=== PATIENT | female | born 1985 | race Caucasian/White ===

== ENCOUNTER 2017-04-17 05:55 | Inpatient (IN) | payer OTHER ==
[2017-04-16 10:28] LABS: BASOPHILS # (AUTO) 0.3 K/uL (0.00-0.22); BASOPHILS % (AUTO) 2.2 % (0.0-2.0); EOSINOPHILS # (AUTO) 0.2 K/uL (0-0.4); EOSINOPHILS % (AUTO) 1.3 % (0.0-4.0); HEMOGLOBIN 13.1 g/dL (12.0-16.0); LYMPHOCYTES # (AUTO) 2.2 K/uL (2.5-16.5); LYMPHOCYTES % (AUTO) 17.6 % (20.5-51.1); MEAN CORPUSCULAR HEMOGLOBIN 26 pg (27-31); MEAN CORPUSCULAR HGB CONC 32 g/dL (33-37); MEAN CORPUSCULAR VOLUME 80 fL (80-94); MONOCYTES # (AUTO) 0.3 K/uL (0.8-1.0); MONOCYTES % (AUTO) 2.4 % (1.7-9.3); NEUTROPHILS # (AUTO) 9.4 K/uL (1.8-7.7); NEUTROPHILS % (AUTO) 76.5 % (42.2-75.2); PLATELET COUNT (AUTO) 551 K/uL (140-450); RED BLOOD CELL COUNT(AUTO) 5.12 MIL/uL (4.20-5.40); WHITE BLOOD COUNT (AUTO) 12.4 K/uL (4.8-10.8)
[2017-04-16 10:49] LABS: ALBUMIN 3.3 g/dL (3.4-5.0); ANION GAP 13.2 (8-16); CALCIUM 8.2 mg/dL (8.5-10.1); CARBON DIOXIDE 26.8 mmol/L (21-32); CREATININE 0.7 mg/dL (0.6-1.3); TOTAL BILIRUBIN 0.3 mg/dL (0.0-1.0); TOTAL PROTEIN, SERUM 8.3 g/dL (6.4-8.2)
[~2017-04-17] VITALS: Ht 170.2 cm; Wt 134.3 kg
[2017-04-17] MEDS ORDERED: AMOX500C25 PO (07:12)
[2017-04-17] MEDS ORDERED: BUPIVACAINE-MPF/EPI 0.5% 30 ML VIAL INJ ONE (07:13)
[2017-04-17] MEDS ORDERED: MIDAZOLAM 2 MG/2 ML VIAL ONE (09:19)
[2017-04-17] MEDS ORDERED: fentaNYL 0.05 MG/ML VIAL ONE (09:19)
[2017-04-17] MEDS ORDERED: DEXAMETHASONE 4 MG/ML VIAL ONE (09:20)
[2017-04-17] MEDS ORDERED: ONDANSETRON 4 MG/2 ML VIAL ONE (09:20)
[2017-04-17] MEDS ORDERED: PROPOFOL 200 MG/20 ML VIAL IV ONE (09:20)
[2017-04-17] MEDS ORDERED: SUCCINYLCHOLINE CHLORIDE 200 MG/10 ML VIAL IVP ONE (09:20)
[2017-04-17] MEDS ORDERED: SEVOFLURANE 250 ML BTL INH ONE (09:20)
[2017-04-17] MEDS ORDERED: MEPERIDINE 50 MG/ML SYR ONE (09:20)
[2017-04-17] MEDS ORDERED: IBUPROFEN 800 MG TAB PO PRN (09:40)
[2017-04-17] MEDS ORDERED: ONDANSETRON 4 MG/2 ML VIAL IVP PRN ×2 (09:40→10:00)
[2017-04-17] MEDS ORDERED: MEPERIDINE 25 MG/ML SYR IVP PRN (10:00)
[2017-04-17] MEDS ORDERED: BLOOD GLUCOSE MONITORING 1 DEV DEV FS SCH (10:00)
[2017-04-17] MEDS ORDERED: diphenhydrAMINE 50 MG/ML VIAL IVP PRN (10:00)
[2017-04-17] MEDS ORDERED: HYDROmorphone 1 MG/ML AMP IVP PRN (10:00)
[2017-04-17] MEDS: HYDROmorphone PFS 2 MG/ML SYR ONE ×4 (10:45→11:15)
[2017-04-17] MEDS ORDERED: KETOROLAC 60 MG/2 ML VIAL IM ONE (11:26)
--- NOTE | 2017-04-17 14:25 | NUR ---
REPORT RECEIVED FROM PACU NURSE, PT AAOX4 RESTING QUIETLY IN NAD, RESP EVEN UNLABORED, SPEAKS CLERLY WITHOUT PROBLEM, MOVES ALL EXT, SKIN WARM DRY COLOR WNL, BULKY DRESSING NOTED TO LOWER ABD, CLEAN DRY INTACT, PT C/O PAIN 03/16, WILL MEDICATE PER ORDER, PLAN OF CARE DISCUSSED, ALL QUIESTIONS ASKED AND ANSWERED, PT ORIENTED TO ROOM AND FLOOR, CALL LI WITHIN REACH, AT BEDSIDE, WILL CONTINUE TO MONITOR.
[2017-04-17] MEDS: MORPHINE SULFATE 4 MG/ML SYR IM/IVP PRN ×2 (14:29→19:14)
[2017-04-17 14:30] VITALS: BP 105/68
[2017-04-17] MEDS: NACL 0.9% 1,000 ML IV SCH ×3 (14:32→23:55)
[2017-04-17 16:00] VITALS: BP 109/65
[2017-04-17] MEDS: ACETAMINOPHEN/CODEINE 300/30MG 1 TAB PO PRN (17:16)
--- NOTE | 2017-04-17 17:16 | NUR ---
PT C/O MORE PAIN, MEDICATED WITH T#3 AT THIS TIME.
--- NOTE | 2017-04-17 18:16 | NUR ---
PT SITTING UP IN BED TALKING WITH FAMILY, LAUGHING SMILING IN NAD, BERNARDA CLEAR LIQ DIET WELL WITHOUT PROBLEM.
--- NOTE | 2017-04-17 19:30 | NUR ---
REPORT GIVEN TO ELECTRICAL POWER ENGINEER NURSE, PT IN STABLE CONDITION.
[2017-04-17 20:00] VITALS: BP 81/28
--- NOTE | 2017-04-17 20:05 | NUR ---
SEEN PT AWAKE, ALERT AND ORIENTED SWEATING. PT STATES SHE FEELS LIKE SHE'S HAVING ANXIETY ATTACK BUT DENIES ANY PAIN. INITIAL ASSESSMENT DONE. ABDOMINAL DRESSING CHECKED-CLEAN, DRY AND INTACT. PT FEELS PAIN WHEN AREA IS TOUCHED. VITAL SIGNS CHECKED. BP 81/28. PT'S HOB LOWERED. PT'S O2 99% ON ROOM AIR BUT STILL PLACED ON 2L VIA NC. PT SAID IT FEELS MUCH BETTER W/ O2 ON. PT STATES "KEEP IT ON FOR NOW." ICED TOWEL PLACED ON PT'S FOREHEAD. PT STATES " IT FEELS BETTER." INSTRUCTED THAT SHE NEEDS TO MOVE AND BE OUT OF BED. PT SAID " IT HURTS TOO MUCH WHEN I MOVE." ASKED PT WHEN DID SHE LAST URINATE. SHE SAID "9AM BEFORE I HAD SURGERY." PT CAN'T REMEMBER IF THEY PUT CATHETER ON HER DURING SURGERY. INFORMED PT THAT HER BP NEEDS TO BE CHECK BEFORE PAIN MEDICATION. CALL LIGHT W/IN REACH. FAMILY AT BEDSIDE. WILL CONTINUE TO MONITOR.
[2017-04-17 20:30] VITALS: BP 97/38
--- NOTE | 2017-04-17 20:30 | NUR ---
BP RECHECKED ON SAME ARM (LEFT) 97/38. PT SAID SHE FEELS MUCH BETTER NOW AND WANTS TO KEEP HER OXYGEN ON. CALL LIGHT W/IN REACH. INSTRUCTED PT TO CALL ANYTIME SHE FEELS THE SAME WAY AGAIN. PT VERBALIZED UNDERSTANDING.
--- NOTE | 2017-04-17 21:35 | NUR ---
PT STATED SHE WERE ABLE TO SLEEP FOR AN HOUR AND THEN WOKE UP SWEATING AND FELT LIKE PASSING OUT.
[2017-04-17 21:40] VITALS: BP 100/54
--- NOTE | 2017-04-17 21:40 | NUR ---
PT CALLED AND WANTS TO URINATE BUT SCARED TO MOVE DUE TO PAIN. PT SAYING SHE FEELS LIKE PASSING OUT EARLIER AND THAT SHE'S SWEATING AGAIN. PT APPEARS PALE. COLD TOWEL IN PLACED ON FOREHEAD. BP CHECKED:100/54. WILL CALL DR VICKIE ZIEGLER.
--- NOTE | 2017-04-17 21:45 | NUR ---
SPOKE TO DR Wero ZIEGLER REGARDING PT NOT ABLE TO URINATE SINCE SURGERY AND THAT SHE ALMOST PASSED OUT EARLIER W/ LOW BP OF 81/28. HE SAID OK TO PUT PADILLA IN AND MONITOR BP. Addendum: 04/17/17 at 2232 by Elizabeth Vanegas RN INFORMED DR Wero ZIEGLER THAT HER BP NOW IS 100/54.
--- NOTE | 2017-04-17 22:00 | NUR ---
EXPLAINED TO PT THE PROCEDURE IN PADILLA CATHETER INSERTION. PT VERBALIZED UNDERSTANDING. STERILE TECHNIQUE PERFORMED. PADILLA CATH FR 16 INSERTED W/ 700ML CLEAR YELLOW URINE OUT RIGHT AWAY. PT SAID SHE'S FEELING PRESSURE. TOLD HER PRESSURE IS BEING RELEASED NOW BECAUSE SHE HASN'T URINATED FOR A WHILE. PT VERBALIZED UNDERSTANDING. PT TOLERATED PROCEDURE. SECUREMENT DEVICE IN PLACED. PT ASKED FOR JELLO AND TOP SHEET. WILL GIVE ONE. CALL LIGHT W/IN REACH. INSTRUCTED PT TO CALL AGAIN WHEN SHE FEELS OMAR SAME WAY AGAIN. WILL CONTINUE TO MONITOR.
--- NOTE | 2017-04-17 23:00 | NUR ---
SEEN PT SLEEPING COMFORTABLY. WILL CONTINUE TO MONITOR.
--- NOTE | 2017-04-17 23:55 | NUR ---
SEEN PT APPEARS ASLEEP BUT AROUSABLE. PT SAID SHE FEELS MUCH BETTER. VITAL SIGNS CHECKED AND WNL. PADILLA CATHETER DRAINING ADEQUATE URINE. IVF BAG CHANGED. WILL CONTINUE TO MONITOR.
[2017-04-17 23:56] VITALS: BP 115/62
--- NOTE | 2017-04-18 01:30 | NUR ---
SEEN PT SLEEPING SOUNDLY. IVF INFUSING WELL. PADILLA CATH DRAINING ADEQUATE URINE. WILL CLOSELY MONITOR.
[2017-04-18 04:00] VITALS: BP 114/61
--- NOTE | 2017-04-18 04:20 | NUR ---
SEEN PT AWAKE. PT SAID SHE SLEPT GOOD. SHE WOKE UP AT 3AM. PT SAID SHE FEELS MUCH BETTER. VITAL SIGNS CHECKED. IVF INFUSING WELL. PADILLA CATH STILL IN PLACED. WILL CONTINUE TO MONITOR.
--- NOTE | 2017-04-18 06:50 | NUR ---
SEEN PT AWAKE. ABDOMINAL DRESSING CHECKED-CLEAN, DRY AND INTACT. PT STATES SHE FEELS LIKE SHE'S CONGESTED. PT GIVEN INCENTIVE SPIROMETER. PT AWARE HOW TO USE. ENCOURAGED TO DO IT 10X IN AN HOUR WHILE AWAKE. INFORMED HER THAT THE GOAL IS 1500. PT DID ABOUT 5X UP TO 1000 BUT COMPLAINING OF PAIN IN BETWEEN. PT DENIES ANY OTHER NEEDS.
--- NOTE | 2017-04-18 07:05 | NUR ---
DR VCIKIE ZIEGLER CAME BY AND TALKED TO THE PATIENT REGARDING CARE PLAN. HE SAID TO KEEP PADILLA CATH FOR NOW AND WE'LL SEE LATER. HE SAID OK TO USE INCENTIVE SPIROMETER.
--- NOTE | 2017-04-18 07:30 | NUR ---
REPORT RECEIVED FROM CLIENT APPLICATION SUPPORT SPECIALIST, PT RESTING WITH EYES CLOSED, RESP EVEN UNLABORED ON ROOM AIR IN NAD, SKIN WARM DRY COLOR WNL, DRESSING LOWER ABD CLEAN DRY INTACT, PT AROUSES EASILY BY VOICE, REPORTS MINOR PAIN WITH MOVEMENT, PT DECLINES PAIN MED, DENIES ANY IMMEDIATE NEEDS, PLAN OF CARE DISCUSSED, CALL LI WITHIN REACH, SIDE RAILS UP, BED LOCKED IN LOW POSITION, WILL CONTINUE TO MONITOR. Addendum: 04/18/17 at 0831 by Adrianna Freitas RN PT DENIES FEELING DIZZY OR LIGHT HEADED AT THIS TIME.
[2017-04-18 08:02] VITALS: BP 101/48
--- NOTE | 2017-04-18 08:30 | NUR ---
PT SLEEPING QUIETLY IN NAD, RESP EVEN UNLABORED, SKIN COLOR WNL, SAFETY MEASURES IN PLACE, WILL CONTINUE TO MONITOR.
--- NOTE | 2017-04-18 09:16 | NUR ---
PATIENT HAS BEEN SCREENED AND CATEGORIZED HIGH NUTRITION RISK. PATIENT WILL BE SEEN WITHIN 1-2 DAYS OF ADMISSION. 04/18/17-04/19/[address]
--- NOTE | 2017-04-18 10:08 | NUR ---
PT SITTING UP MORE IN BED, STATES PAIN IS TOLERABLE, DENIES FEELING DIZZY OR LIGHTHEADED, PADILLA REMAINS IN PLACE, DRAINING WELL, FRESH WATER PROVIDED, CALL LI WITHIN REACH, SIDE RAILS UP, SILL CONTINUE TO MONITOR.
[2017-04-18] MEDS: ACETAMINOPHEN/CODEINE 300/30MG 1 TAB PO PRN ×3 (10:46→21:10)
[2017-04-18] MEDS: NACL 0.9% 1,000 ML IV SCH ×2 (10:47→19:20)
--- NOTE | 2017-04-18 10:51 | NUR ---
PT REPORTS ACCIDENTAL STOOL INCONTINENCE WHEN COUGHED, ATTEMPTED TO GET OUT OF BED WITH ASSIST, PT UNABLE TO TOLERATE PAIN WITH MOVEMENT, UNABLE TO GET UP AT THIS TIME, PT C/O SHOULDER PAIN, T#3 GIVEN AT THIS TIME, PT PLACED ON BED ALARCON.
--- NOTE | 2017-04-18 12:34 | NUR ---
04/18/17 RD INITIAL ASSESSMENT COMPLETED PLEASE REFER TO NUTRITION ASSESSMENT UNDER CARE ACTIVITY FOR ESTIMATED NUTRITIONAL NEEDS. 1. CONTINUE CLEAR LIQUID DIET AND ADVANCE TOLERATED TO REGULAR DIET. 2. RD TO FOLLOW-UP 2-3 DAYS; HIGH RISK HUBERT [address]IN RD
--- NOTE | 2017-04-18 15:19 | NUR ---
cm note initial review faxed to [facility] [phone] kathe ext [phone]
--- NOTE | 2017-04-18 15:30 | NUR ---
PT SAT UP TO SIDE OF BED WITH ASSIST, PT STATES IT'S PAINFUL TO MOVE BUT TOLERABLE, PT REFUSES TO STAND UP AT THIS TIME, PT WANTS TO STAY SITTING AT SIDE OF BED NOW, BOYFRIEND AT BEDSIDE, WILL CONTINUE TO MONITOR.
[2017-04-18 16:30] VITALS: BP 99/64
--- NOTE | 2017-04-18 16:30 | NUR ---
PT STOOD UP AND AMBULATED AROUND THE ROOM WITH SOME ASSIST, STATES PAINFUL BUT TOLERABLE, GAIT STEADY, REASSURANCE PROVIDED, RETURNED BACK TO CHAIR, VSS, PADILLA REMOVED, CATH TIP INTACT, PT BERNARDA WELL, PT AWARE OF TIME DUE TO VOID. WILL CONTINUE TO MONITOR
--- NOTE | 2017-04-18 18:19 | NUR ---
R HAND PIV DISLODGED AND CAME OUT, NEW IV STARTED TO LEFT HAND 22G, PT BERNARDA WELL, NS IVF INFUSION RESTARTED, PT SITTING UP EATING DINNER, DENIES PAIN OR DISCOMFORT, WILL CONTINUE TO MONITOR.
--- NOTE | 2017-04-18 18:58 | NUR ---
PT UP AMBULATING AROUND THE HALLWAY WITH STEADY GAIT, BERNARDA WELL, PT TAKEN TO BATHROOM ATTEMPTING TO URINATE.
--- NOTE | 2017-04-18 19:15 | NUR ---
PT HAD SPONTANEOUS VOID APPROX 50ML
--- NOTE | 2017-04-18 19:28 | NUR ---
REPORT GIVEN TO DIVISIONAL HUMAN RESOURCES DIRECTOR NURSE, PT IN STABLE CONDITION
--- NOTE | 2017-04-18 19:35 | NUR ---
RECEIVED REPORTS FROM DAY RN. PATIENT RESTING IN BED, FAMILY MEMBER AT BEDSIDE. NO S/S OF ACUTE DISTRESS NOTED, PATIENT DENIES PAIN AT THIS TIME. PATIENT STATED VOID X1 AFTER PADILLA WAS D/C. IV PATENT AND INTACT, INFUSING NORMAL SALINE AT 120ML/HR. CALL LIGHT WITHIN REACH, SAFETY MEASURE ENSURED, WILL CONTINUE TO MONITOR.
--- NOTE | 2017-04-18 21:10 | NUR ---
PATIENT STATED ABDOMINAL PAIN 6/10, PAIN MEDICATION GIVEN ORDERED. WILL CONTINUE TO MONITOR
--- NOTE | 2017-04-18 22:30 | NUR ---
PATIENT ASLEEP IN BED, NO S/S OF ACUTE DISTRESS NOTED, CALL LIGHT WITHIN REACH, SAFETY MEASURE ENSURED, WILL CONTINUE TO MONITOR.
--- NOTE | 2017-04-18 23:40 | NUR ---
ASSISTED PATIENT TO THE BATHROOM. PATIENT WAS ABLE TO PASS GAS X1, AND VOID X1, URINE CLEAR, YELLOW. NO S/S OF ACUTE DISTRESS NOTED. CALL LIGHT WITHIN REACH, SAFETY MEASURE ENSURED, WILL CONTINUE TO MONITOR.
[2017-04-19] VITALS: BP 108/54
[2017-04-19] MEDS: NACL 0.9% 1,000 ML IV SCH ×2 (03:51→12:00)
--- NOTE | 2017-04-19 03:56 | NUR ---
CHANGED IV FLUIDS, NO S/S OF ACUTE DISTRESS NOTED, CALL LIGHT WITHIN REACH, SAFETY MEASURE ENSURED, WILL CONTINUE TO MONITOR.
[2017-04-19] MEDS: ACETAMINOPHEN/CODEINE 300/30MG 1 TAB PO PRN ×3 (04:40→14:23)
--- NOTE | 2017-04-19 04:40 | NUR ---
PATIENT STATED HEADACHE 6/10. PAIN MEDICATION GIVEN ORDERED. WILL CONTINUE TO MONITOR.
--- NOTE | 2017-04-19 05:29 | NUR ---
PATIENT ASLEEP IN BED, NO S/S OF ACUTE DISTRESS NOTED, CALL LIGHT WITHIN REACH, SAFETY MEASURE ENSURED, WILL CONTINUE TO MONITOR.
--- NOTE | 2017-04-19 07:25 | NUR ---
ENDORSED PLAN OF CARE TO DAY RN. PATIENT IS RESTING IN BED AND IN STABLE CONDITION.
--- NOTE | 2017-04-19 07:27 | NUR ---
REPORT RECEIVED FROM LIBRARY TECHNICAL ASSISTANT, PT SLEEPING QUIETLY, AROUSES EASILY BY VOICE, O X4, RESP EVEN UNLABORED ON ROOM AIR, SHIFT ASSESSMENT DONE, PT DENIES PAIN OR DISCOMFORT, PLAN OF CARE REVIEWED, ALL QUESTION ASKED AND ANSWERED, CALL LI WITHIN REACH, SIDE RAILS UP, WILL CONTINUE TO MONITOR
[2017-04-19 08:00] VITALS: BP 98/72
--- NOTE | 2017-04-19 09:00 | NUR ---
PT UP OUT OF BED WITH MINIMAL ASSIST, AMBULATES TO BATHROOM WITHOUT PROBLEM, SITTING IN CHAIR NOW FOR BREAKFAST.
--- NOTE | 2017-04-19 10:45 | NUR ---
PT SLEEPING WITH EYES CLOSED, AROUSES EASILY BY VOICE, STATES PAIN IS BETTER, PT ENCOURAGED TO GET UP FOR AMBULATION BUT PT STATES "I DON'T WANT TO GET UP AND WALK NOW, I WANT TO SLEEP LONGER" PT ENCOURAGED TO CALL NURSE WHEN READY FOR AMBULATION.
--- NOTE | 2017-04-19 11:01 | NUR ---
DR Monica ZIEGLER CALLED TO NOTIFY OF PT CONDITION, DR ZIEGLER WILL COME SEE PT LATER TO POSSIBLY DC HOME.
--- NOTE | 2017-04-19 12:40 | NUR ---
DR Monica ZIEGLER AT BEDSIDE, DC ORDER RECEIVED.
--- NOTE | 2017-04-19 13:02 | NUR ---
PT UP WALKING AROUND IN HALLWAY WITH STEADY GAIT WITHOUT PROBLEM WITHOUT ASSIST, PT STATES HER BOYFRIEND WILL COME LATER AROUND 6PM TO TAKE HER HOME.
--- NOTE | 2017-04-19 14:20 | NUR ---
FAXED CONCURRENT REVIEW TO [facility] [phone] PHONE [phone]
--- NOTE | 2017-04-19 16:40 | NUR ---
DISCHARGE INSTRUCTION GIVEN AND EXPLAINED TO PT, PT VERBALIZED FULL UNDERSTANDING, IV DC'D, CATH TIP INTACT, BLEDING CONTROLLED, ALL QUESTIONS ASKED AND ANSWERED, AWAITING BOYFIRNED TO DC HOME.
--- NOTE | 2017-04-19 17:15 | NUR ---
BOYFRIEND HERE TO PICK HER UP, DC HOME NOW WITH BOYFRIEND, PT AMBULATORY WITH STEADY GAIT, ESCORTED OUT AT THIS TIME.
== END 2017-04-19 17:15 | disposition home or self-care (01) | DRG 742 ==
LOC: MOR 05:55 → MMU 05:58 → MTU 13:41 → UNDOADMOB 13:41 → MOR 13:41 → MMU 13:41 → MTU 13:41 → INTOOBSV 15:20 → OBSVTOIN 15:20 → MTU 04-18 15:21
PROVIDERS: ADMIT Obstetrics & Gynecology; ATTEND Obstetrics & Gynecology
PROC: 0UB50ZZ Excision of Right Fallopian Tube, Open Approach (ICD-10-PCS; principal; 2017-04-17 09:00)
PROC: 0UB00ZZ Excision of Right Ovary, Open Approach (ICD-10-PCS; 2017-04-17 09:00)
DX: N83.8 Other noninflammatory disorders of ovary, fallopian tube and broad ligament (principal); Z68.42 Body mass index [BMI] 45.0-49.9, adult; N83.201 Unspecified ovarian cyst, right side; Z79.899 Other long term (current) drug therapy; E11.9 Type 2 diabetes mellitus without complications; E66.9 Obesity, unspecified
CPT/HCPCS: 36415; 80053; 84702; 85025; 86886; 86900; 86901; 88305; G0378; J0330; J0690; J1100; J1170; J1885; J2175; J2250; J2270; J2405; J2704; J3010; J3490; J7030; J7060